=== PATIENT | male | born 1995 | race Caucasian/White ===

== ENCOUNTER 2017-01-16 12:35 | Inpatient (IN) | payer OTHER ==
[2017-01-16 20:24] VITALS: BP 162/74; PULSE 129; RESP 20; TEMP 97.9; O2SAT 98
[2017-01-16] MEDS ORDERED: MAGNESIUM HYDROXIDE SUSP 30 ML CUP PO PRN ×2 (23:00)
[2017-01-16] MEDS ORDERED: hydrOXYzine HCL 25 MG TAB PO PRN ×2 (23:00)
[2017-01-16] MEDS ORDERED: ACETAMINOPHEN 325 MG TAB PO PRN ×2 (23:00)
[2017-01-16] MEDS ORDERED: ALUMINUM/MAGNESIUM/SIMETH 30 ML CUP PO PRN ×2 (23:00)
[2017-01-17 06:24] VITALS: BP 120/68; PULSE 95; RESP 18; TEMP 97.5; O2SAT 97
[2017-01-17] MEDS: cloNIDine HCL 0.1 MG TAB PO SCH ×2 (07:55)
[2017-01-17] MEDS: QUEtiapine FUMARATE 300 MG TAB PO SCH ×2 (07:55)
[2017-01-17] MEDS: risperiDONE 1 MG TAB PO SCH ×4 (07:55→21:20)
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
[2017-01-17 08:47] LABS: BICARBONATE 26.1 MEQ/L (21.0-32.0); BLOOD UREA NITROGEN 9 MG/DL (7-18); CALCIUM 9.2 MG/DL (8.5-10.1); CHLORIDE 106 MEQ/L (98-107); CHOLESTEROL 135 MG/DL (120-200); CREATININE 0.82 MG/DL (0.60-1.30); GLOMERULAR FILTRATION RATE 120 ML/MIN (>89); GLUCOSE,RANDOM 92 MG/DL (74-106); SODIUM (NA) 141 MEQ/L (136-145)
[2017-01-17 08:51] LABS: CHOLESTEROL/ HDL RATIO 2.22 RATIO; HDL CHOLESTEROL 60.7 MG/DL (40.0-60.0); LDL CHOLESTEROL 64 MG/DL (0-99); TRIGLYCERIDES 50 MG/DL (42-150)
[2017-01-17 13:59] LABS: HEMOGLOBIN A1C 5.3 % (4.3-6.0)
--- NOTE | 2017-01-17 15:48 | PD.CONS ---
[facility] Request[facility] By Thien Bauer MD Reason for Consult Medical Management. Primary Care Physician Unknown Diagnoses: History of Present Illness This is a pleasant 21 y/o Male Who has Diagnosis of Autism and Intermittent Explosive Disorder as per Psychiatry specialist, he has Cerebral Palsy and is Deaf, I have the Opportunity to talk with the patient's Mother Mrs. Breanna Holloway he has history of Self injurious behavior when becomes upset, the patient use sign language, Urinary Incontinence as per his Mother this has improved using behavioral therapy, the patient did not have any aggressive behavior since admission the patient was brought in under blogTV act for agitation and having aggressive behavior at home, had some lesions on his right hand, as per his relative they want their son to go to a Penitentiary. Review of Systems Constitutional: DENIES: Fever, Chills, Change in appetite Endocrine: DENIES: Heat/cold intolerance Eyes: DENIES: Blurred vision, Eye pain Except as stated in HPI: all other systems reviewed are Neg Past Family Social History Allergies: Coded Allergies: pentobarbital (Verified Allergy, Severe, 01/16/17) Past Medical History Autism Intermittent Explosive Disorder with Self injurious behavior Cerebral Palsy Deaf Past Surgical History Negative Surgical History Active Ordered Medications Current Medications Medications (Trade) Dose Ordered Sig/Mariah Route Start Time Stop Time Status Last Admin (risperDAL) 1 mg BID PO 01/17/17 09:00 01/17/17 07:55 (Catapres) 0.1 mg DAILY PO 01/17/17 09:00 01/17/17 07:55 (Catapres) 0.2 mg HS PO 01/17/17 21:00 (SEROquel) 300 mg DAILY PO 01/17/17 09:00 01/17/17 07:55 (SEROquel) 400 mg HS PO 01/17/17 21:00 (Atarax) 25 mg Q6H PRN PO 01/16/17 23:00 (Tylenol) 650 mg Q4H PRN PO 01/16/17 23:00 (Milk Of Magnesia Liq) 30 ml DAILY PRN PO 01/16/17 23:00 (Mag-Al Plus Susp Liq) 30 ml Q6H PRN PO 01/16/17 23:00 Family History Father with Hypertension. Social History Single, domiciled parents and sister, attends special education classes, has home health aid services Physical Exam Vital Signs Vital Signs Date Time Temp Pulse Resp B/P (MAP) Pulse Ox O2 Delivery O2 Flow Rate FiO2 01/17/17 06:24 97.5 95 18 120/68 (85) 97 01/16/17 20:24 97.9 129 20 162/74 (103) 98 Physical Exam GENERAL: This is a well-nourished, well-developed patient, in no apparent distress. SKIN: Right palm with two lesions, no signs of infection no need for stitches. HEAD: Atraumatic. Normocephalic. No temporal or scalp tenderness. EYES: Pupils equal round and reactive. Extraocular motions intact. No scleral icterus. No injection or drainage. ENT: Nose without bleeding, purulent drainage or septal hematoma. Throat without erythema, tonsillar hypertrophy or exudate. Uvula midline. Airway patent. NECK: Trachea midline. No JVD or lymphadenopathy. Supple, nontender, no meningeal signs. CARDIOVASCULAR: Regular rate and rhythm without murmurs, gallops, or rubs. RESPIRATORY: Clear to auscultation. Breath sounds equal bilaterally. No wheezes , rales, or rhonchi. GASTROINTESTINAL: Abdomen soft, non-tender, nondistended. No hepato-splenomegaly , or palpable masses. No guarding. MUSCULOSKELETAL: Extremities without clubbing, cyanosis, or edema. Right hand with two small lesions NEUROLOGICAL: alert, not oriented. does follow simple commands. Laboratory Laboratory Tests Test 01/17/17 07:18 Blood Urea Nitrogen 9 Creatinine 0.82 Random Glucose 92 Calcium Level 9.2 Sodium Level 141 Potassium Level 3.6 Chloride Level 106 Carbon Dioxide Level 26.1 Anion Gap 9 Estimat Glomerular Filtration Rate 120 Hemoglobin A1c 5.3 Triglycerides Level 50 Cholesterol Level 135 LDL Cholesterol 64 HDL Cholesterol 60.7 Cholesterol/HDL Ratio 2.22 Result Diagram: 01/17/17 0718 Imaging No Imaging studies. Assessment and Plan Assessment and Plan 1. Autism admitted/Intermittent Explosive Disorder with Self injurious behavior admitted to Inpatient Psychiatric unit as per his relatives they want the patient going to a Penitentiary High Rigger following 2. Cerebral Palsy 3. Deaf communicate with sign language Patient Medically stable no further Medical Management needed. signed off the case. Appreciated Doctor Thien Robbins for this consult, Code Status Full Code. Discussed Condition With Patient and nurse in the room Discussed with his Mother Mrs. Breanna Holloway face to face in patient's Room. Manny Contreras MD Jan 17, 2017 3:48 pm
[2017-01-17 18:22] VITALS: BP 145/87; PULSE 124; RESP 18; TEMP 98.4; O2SAT 100
[2017-01-17] MEDS: cloNIDine HCL 0.2 MG TAB PO SCH ×2 (21:19)
[2017-01-17] MEDS: QUEtiapine FUMARATE 200 MG TAB PO SCH ×2 (21:20)
[2017-01-18 05:42] VITALS: BP 113/57; PULSE 90; RESP 18; TEMP 98.3; O2SAT 98
[2017-01-18 08:04] VITALS: BP 113/57; PULSE 106; RESP 18; O2SAT 96
[2017-01-18] MEDS: QUEtiapine FUMARATE 300 MG TAB PO SCH ×2 (08:07)
[2017-01-18] MEDS: cloNIDine HCL 0.1 MG TAB PO SCH ×2 (08:07)
[2017-01-18] MEDS: risperiDONE 1 MG TAB PO SCH ×4 (08:07→21:34)
--- NOTE | 2017-01-18 09:14 | PD.TTN ---
Patient Problems 1. Discharge planning 2. Medication compliance 3. Knowledge deficit 4. Lack of coping skills Progress Toward Goals Provider Present: Dr. Larry Bauer Provider Input: Per Dr. Bauer patient has aggressive behavior, and mood requires stabizing Nurse(s) Input: Per RN patient is eating taking his medication and eating meals, selective to self. Psychiatric Counselors Present: TIERNEY Cueva Psych Therapist Input: Counselor will contact patient's family to arrange a family meeting via face to face or phone conference. Group Spec/RT/OT/MARIE Present: Tommy Chaidez OT Group Spec/RT/OT/MARIE Input: Patient is a new admission Documentation Scribe: Carmencita Otto Jan 18, 2017 09:14
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
--- NOTE | 2017-01-18 13:55 | HHI.PYPN ---
Subjective Remarks Patient seen for follow, chart review. Discussion with nursing staff reported the patient has been sleeping well, no behavioral issues overnight. Patient found sitting in hospital bed, calm and continues to be communicative verbally. Patient continues to have you and incontinence as noted by his bed. Patient was guided to shower today which she did with no behavioral issues. Patient tolerating medication well. Patient has not had any behavioral this control since admission, but is easily redirectable. Lieutenant Fire Fighter spoke with patient's mother , he swells, which treatment regimen was discussed with her as well as importance of behavioral interventions to prevent escalated behavioral outbursts ER. Patient's parents are currently looking for senior living placement as he feels that he can be better managed in his environment that has this kind of support. Review of Systems Except as stated in HPI: all other systems reviewed are Neg Mental Status Examination Appearance: Appropriate Consciousness: Alert, Vigilant Motor Activity: Normal gait Speech: Other (patient indicates with sign language) Language: Other (unable to assess due to patient's unwillingness to cooperate with sign costume director) Fund of Knowledge: Poor Attention and Concentration: Easily Distracted Memory: Impaired Mood: Appropriate Affect: Other (restricted) Thought Process & Associations: Other (unable to assess at this time due to patient not cooperating with sign costume director, but due to history likely concrete thought process) Thought Content: Other (unable to assess at this time due to patient not cooperating with sign costume director) Hallucination Type: None (unable to assess at this time due to patient not cooperating with sign costume director) Delusion Type: None (unable to assess at this time due to patient not cooperating with sign costume director) Suicidal Ideation: No Suicidal Plan: No Suicidal Intention: No Homicidal Ideation: No Homicidal Plan: No Homicidal Intention: No Insight: Poor Judgment: Poor Results Vitals/IOs Vital Signs Date Time Temp Pulse Resp B/P (MAP) Pulse Ox O2 Delivery O2 Flow Rate FiO2 01/18/17 08:04 106 18 113/57 (75) 96 01/18/17 05:42 98.3 Intake and Output 01/18/17 01/18/17 01/19/17 08:00 16:00 00:00 Intake Total 0 ml 2400 ml Balance 0 ml 2400 ml Assessment & Plan Problem List: (1) Intermittent explosive disorder ICD Codes: F63.81 - Intermittent explosive disorder (2) Autism spectrum disorder ICD Codes: F84.0 - Autistic disorder Assessment & Plan Patient continued to have no behavioral dyscontrol since admission. Patient to continue current treatment. Continue treatment with this regiment along with a behavioral health associate was discussed with mother over the phone and importance of providing patient with lowest effective dose with his medications and as well as no indication to increase or add medication at this time due to patient's current evaluation behavior while on the unit. With discussion of risks and benefits of polypharmacy as well as possible side effects were reviewed. The patient's mother stated that she will come by tomorrow and bringing him home after discharge. Justification for Cont. Inpt. At risk for further decompensation if at lower level of care Discharge Planning Patient to return back home upon discharge. Thien Bauer MD Jan 18, 2017 13:54
--- NOTE | 2017-01-18 13:55 | HHI.PYPN ---
Subjective Remarks Patient seen for follow, chart review. Discussion with nursing staff reported the patient has been sleeping well, no behavioral issues overnight. Patient found sitting in hospital bed, calm and continues to be communicative verbally. Patient continues to have you and incontinence as noted by his bed. Patient was guided to shower today which she did with no behavioral issues. Patient tolerating medication well. Patient has not had any behavioral this control since admission, but is easily redirectable. Regional Property Manager spoke with patient's mother , he swells, which treatment regimen was discussed with her as well as importance of behavioral interventions to prevent escalated behavioral outbursts ER. Patient's parents are currently looking for skilled nursing placement as he feels that he can be better managed in his environment that has this kind of support. Review of Systems Except as stated in HPI: all other systems reviewed are Neg Mental Status Examination Appearance: Appropriate Consciousness: Alert, Vigilant Motor Activity: Normal gait Speech: Other (patient indicates with sign language) Language: Other (unable to assess due to patient's unwillingness to cooperate with sign language interpreter) Fund of Knowledge: Poor Attention and Concentration: Easily Distracted Memory: Impaired Mood: Appropriate Affect: Other (restricted) Thought Process & Associations: Other (unable to assess at this time due to patient not cooperating with sign language interpreter, but due to history likely concrete thought process) Thought Content: Other (unable to assess at this time due to patient not cooperating with sign language interpreter) Hallucination Type: None (unable to assess at this time due to patient not cooperating with sign language interpreter) Delusion Type: None (unable to assess at this time due to patient not cooperating with sign language interpreter) Suicidal Ideation: No Suicidal Plan: No Suicidal Intention: No Homicidal Ideation: No Homicidal Plan: No Homicidal Intention: No Insight: Poor Judgment: Poor Results Vitals/IOs Vital Signs Date Time Temp Pulse Resp B/P (MAP) Pulse Ox O2 Delivery O2 Flow Rate FiO2 01/18/17 08:04 106 18 113/57 (75) 96 01/18/17 05:42 98.3 Intake and Output 01/18/17 01/18/17 01/19/17 08:00 16:00 00:00 Intake Total 0 ml 2400 ml Balance 0 ml 2400 ml Assessment & Plan Problem List: (1) Intermittent explosive disorder ICD Codes: F63.81 - Intermittent explosive disorder (2) Autism spectrum disorder ICD Codes: F84.0 - Autistic disorder Assessment & Plan Patient continued to have no behavioral dyscontrol since admission. Patient to continue current treatment. Continue treatment with this regiment along with a corn shucker was discussed with mother over the phone and importance of providing patient with lowest effective dose with his medications and as well as no indication to increase or add medication at this time due to patient's current evaluation behavior while on the unit. With discussion of risks and benefits of polypharmacy as well as possible side effects were reviewed. The patient's mother stated that she will come by tomorrow and bringing him home after discharge. Justification for Cont. Inpt. At risk for further decompensation if at lower level of care Discharge Planning Patient to return back home upon discharge. Thien Bauer MD Jan 18, 2017 13:54
--- NOTE | 2017-01-18 13:55 | HHI.PYPN ---
Subjective Remarks Patient seen for follow, chart review. Discussion with nursing staff reported the patient has been sleeping well, no behavioral issues overnight. Patient found sitting in hospital bed, calm and continues to be communicative verbally. Patient continues to have you and incontinence as noted by his bed. Patient was guided to shower today which she did with no behavioral issues. Patient tolerating medication well. Patient has not had any behavioral this control since admission, but is easily redirectable. Data Specialist spoke with patient's mother , he swells, which treatment regimen was discussed with her as well as importance of behavioral interventions to prevent escalated behavioral outbursts ER. Patient's parents are currently looking for correction placement as he feels that he can be better managed in his environment that has this kind of support. Review of Systems Except as stated in HPI: all other systems reviewed are Neg Mental Status Examination Appearance: Appropriate Consciousness: Alert, Vigilant Motor Activity: Normal gait Speech: Other (patient indicates with sign language) Language: Other (unable to assess due to patient's unwillingness to cooperate with sign telegraph messenger) Fund of Knowledge: Poor Attention and Concentration: Easily Distracted Memory: Impaired Mood: Appropriate Affect: Other (restricted) Thought Process & Associations: Other (unable to assess at this time due to patient not cooperating with sign telegraph messenger, but due to history likely concrete thought process) Thought Content: Other (unable to assess at this time due to patient not cooperating with sign telegraph messenger) Hallucination Type: None (unable to assess at this time due to patient not cooperating with sign telegraph messenger) Delusion Type: None (unable to assess at this time due to patient not cooperating with sign telegraph messenger) Suicidal Ideation: No Suicidal Plan: No Suicidal Intention: No Homicidal Ideation: No Homicidal Plan: No Homicidal Intention: No Insight: Poor Judgment: Poor Results Vitals/IOs Vital Signs Date Time Temp Pulse Resp B/P (MAP) Pulse Ox O2 Delivery O2 Flow Rate FiO2 01/18/17 08:04 106 18 113/57 (75) 96 01/18/17 05:42 98.3 Intake and Output 01/18/17 01/18/17 01/19/17 08:00 16:00 00:00 Intake Total 0 ml 2400 ml Balance 0 ml 2400 ml Assessment & Plan Problem List: (1) Intermittent explosive disorder ICD Codes: F63.81 - Intermittent explosive disorder (2) Autism spectrum disorder ICD Codes: F84.0 - Autistic disorder Assessment & Plan Patient continued to have no behavioral dyscontrol since admission. Patient to continue current treatment. Continue treatment with this regiment along with a caster helper was discussed with mother over the phone and importance of providing patient with lowest effective dose with his medications and as well as no indication to increase or add medication at this time due to patient's current evaluation behavior while on the unit. With discussion of risks and benefits of polypharmacy as well as possible side effects were reviewed. The patient's mother stated that she will come by tomorrow and bringing him home after discharge. Justification for Cont. Inpt. At risk for further decompensation if at lower level of care Discharge Planning Patient to return back home upon discharge. Thien Bauer MD Jan 18, 2017 13:54
[2017-01-18 18:40] VITALS: BP 142/65; PULSE 114; RESP 18; O2SAT 98
[2017-01-18] MEDS: cloNIDine HCL 0.2 MG TAB PO SCH ×2 (21:34)
[2017-01-18] MEDS: QUEtiapine FUMARATE 200 MG TAB PO SCH ×2 (21:34)
[2017-01-19 06:00] VITALS: BP 122/56; PULSE 115; RESP 16; TEMP 98.6; O2SAT 95
[2017-01-19] MEDS ORDERED: RISP1 PO ×2 (09:25)
[2017-01-19] MEDS ORDERED: QUET1TAB11 PO ×2 (09:25)
[2017-01-19] MEDS ORDERED: CLON.2 PO ×2 (09:25)
[2017-01-19] MEDS ORDERED: QUET1TAB10 PO ×2 (09:25)
[2017-01-19] MEDS ORDERED: CLON.1 PO ×2 (09:25)
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
[2017-01-19] MEDS: risperiDONE 1 MG TAB PO SCH ×2 (09:46)
[2017-01-19] MEDS: QUEtiapine FUMARATE 300 MG TAB PO SCH ×2 (09:46)
[2017-01-19] MEDS: cloNIDine HCL 0.1 MG TAB PO SCH ×2 (09:46)
== END 2017-01-19 12:20 | disposition home or self-care (01) | DRG 883 ==
LOC: H270 17:48 → H4EA 18:47
PROVIDERS: ADMIT Student in an Organized Health Care Education/Training Program; ATTEND Student in an Organized Health Care Education/Training Program
DX: F63.81 Intermittent explosive disorder (principal); F84.0 Autistic disorder; R32 Unspecified urinary incontinence; G80.9 Cerebral palsy, unspecified; H91.3 Deaf nonspeaking, not elsewhere classified; Z91.5 Personal history of self-harm
CPT/HCPCS: 80048; 80061; 83036